=== PATIENT | male | born 1995 | race Caucasian/White ===

== ENCOUNTER 2022-02-10 12:55 | Emergency (ER) | payer MEDICAID ==
[~2022-02-10] VITALS: Ht 180.3 cm; Wt 84.1 kg
--- NOTE | 2022-02-10 13:15 | NUR ---
patient received in bed 6.
--- NOTE | 2022-02-10 13:35 | NUR ---
kim cath placed.pt tolerated well. Addendum: 02/10/22 at 1336 by AMALIA incorrect patient.
[2022-02-10 13:47] LABS: BASOPHILS % (AUTO) 0.3 % (0-1); EOSINOPHILS # (AUTO) 0.4 X10'3 (0-0.9); EOSINOPHILS % (AUTO) 4.4 % (0-6); HEMATOCRIT 38.5 % (42.0-52.0); HEMOGLOBIN 13.2 g/dl (14.0-17.9); LYMPHOCYTES # (AUTO) 2.1 X10'3 (1.1-4.8); LYMPHOCYTES % (AUTO) 21.3 % (21-51); MEAN CORPUSCULAR HEMOGLOBIN 29.7 PG (27.0-31.0); MEAN CORPUSCULAR HGB CONC 34.2 g/dL (33.0-36.5); MEAN CORPUSCULAR VOLUME 86.8 FL (78-98); MEAN PLATELET VOLUME 7.1 FL (7.4-10.4); MONOCYTES # (AUTO) 0.8 X10'3 (0-0.9); MONOCYTES % (AUTO) 8.5 % (2-12); NEUTROPHILS # (AUTO) 6.4 X10'3 (1.8-7.7); NEUTROPHILS % (AUTO) 65.5 % (42-75); PLATELET COUNT 277 X10'3 (140-440); RED BLOOD COUNT 4.44 X10'6 (4.70-6.10); RED CELL DISTRIBUTION WIDTH 13.2 % (11.5-14.5); WHITE BLOOD COUNT 9.7 X10'3 (4.5-11.0)
[2022-02-10 14:01] LABS: ALANINE AMINOTRANSFERASE 20 U/L (12-78); ALBUMIN 4.2 G/DL (3.4-5.0); ALBUMIN/GLOBULIN RATIO 1.3 (1.1-1.5); ALKALINE PHOSPHATASE 61 IU/L (46-116); ANION GAP 8 (8-16); ASPARTATE AMINO TRANSFERASE 21 U/L (10-37); BILIRUBIN,TOTAL 0.6 MG/DL (0.1-1.0); BLOOD UREA NITROGEN 14 MG/DL (7-18); BUN/CREATININE RATIO 15.1 (5.4-32.0); CALCIUM 8.9 MG/DL (8.5-10.1); CHLORIDE 101 MMOL/L (99-107); CREATININE 0.93 MG/DL (0.60-1.10); GLUCOSE 86 MG/DL (70-104); MAGNESIUM 2.1 MG/DL (1.5-2.4); POTASSIUM 3.9 MMOL/L (3.5-5.1); SODIUM 138 MMOL/L (135-145); TOTAL CARBON DIOXIDE 29.1 MMOL/L (24-32); TOTAL PROTEIN 7.4 G/DL (6.4-8.2); eGFR > 90 ML/MIN
[2022-02-10 14:31] VITALS: BP 94/60
== END 2022-02-10 15:03 | disposition home or self-care (01) ==
LOC: ER 12:56
DX: R55 Syncope and collapse (principal); R20.0 Anesthesia of skin; F17.200 Nicotine dependence, unspecified, uncomplicated; F12.90 Cannabis use, unspecified, uncomplicated; F11.90 Opioid use, unspecified, uncomplicated; Z59.00 Homelessness unspecified; Z90.89 Acquired absence of other organs
CPT/HCPCS: 36415; 80053; 83735; 85025; 93005; 99284

== ENCOUNTER 2022-05-26 13:54 | Emergency (ER) | payer MEDICAID ==
[~2022-05-26] VITALS: Ht 177.8 cm; Wt 78.6 kg
[2022-05-26 14:25] VITALS: BP 112/70
[2022-05-26] MEDS ORDERED: ketorolac tromethamine 15mg/ml inj. IM ONE (19:05)
== END 2022-05-26 19:11 | disposition home or self-care (01) ==
LOC: ER 13:54
DX: Z13.89 Encounter for screening for other disorder (principal); M79.632 Pain in left forearm; F12.90 Cannabis use, unspecified, uncomplicated; F11.90 Opioid use, unspecified, uncomplicated; Z90.89 Acquired absence of other organs; Z72.89 Other problems related to lifestyle; Z59.00 Homelessness unspecified
CPT/HCPCS: 96372; 99283; J1885